=== PATIENT | female | born 1985 | race Caucasian/White ===

== ENCOUNTER 2024-03-15 02:11 | Emergency (ER) | payer MEDICAID, OTHER ==
[~2024-03-15] VITALS: Ht 165.1 cm; Wt 67.1 kg
[2024-03-15 02:16] VITALS: O2SAT 98
[2024-03-15 03:15] LABS: *BILIRUBIN,URIN NEGATIVE (NEGATIVE); *BLOOD, URINE NEGATIVE (NEGATIVE); *CLARITY,URINE SLIGHTLY CLOUDY (CLEAR); *COLOR,URINE Other (YELLOW); *KETONES,URINE NEGATIVE (NEGATIVE); *PROTEIN,URINE NEGATIVE (NEGATIVE); *UROBILINOGEN,URINE 0.2 E.U./dl (NORMAL); LEUKOCYTE ESTERASE ,URINE NEGATIVE (NEGATIVE); NITRITE, URINE NEGATIVE (NEGATIVE); PH,URINE 7.5 (5.0-8.0); UGLUCOSE NEGATIVE (NEGATIVE)
[2024-03-15 03:17] LABS: *URINE HCG, QUAL NEGATIVE (NEGATIVE)
[2024-03-15 03:26] LABS: RBC,URINE 0-3 /HPF (0-3)
[2024-03-15 03:27] LABS: BACTERIA,URINE MODERATE /HPF (NONE SEEN); SQUAMOUS EPITHELIAL CELL,UR MODERATE /HPF (NONE SEEN); WBC,URINE 0-3 /HPF (0-3); YEAST,URINE MANY /HPF (NONE SEEN)
[2024-03-15 03:28] LABS: MUCUS,URINE FEW /LPF (0-FEW)
[2024-03-15] MEDS ORDERED: SULF1TAB48 PO (03:46)
[2024-03-15] MEDS ORDERED: FLUC150T PO (03:49)
[2024-03-15] MEDS ORDERED: FLUCONAZOLE 100 MG TABLET ONE ×2 (03:50→03:55)
[2024-03-15] MEDS ORDERED: SULFAMETH/TRIMETH 800/160 MG TABLET ONE (03:51)
[2024-03-15] MEDS: FLUCONAZOLE 100 MG TABLET PO ONE (04:00)
[2024-03-15] MEDS: SULFAMETH/TRIMETH 800/160 MG TABLET PO ONE (04:00)
== END 2024-03-15 04:10 | disposition home or self-care (01) ==
LOC: ER 02:39
DX: N76.0 Acute vaginitis (principal); R30.0 Dysuria; R10.2 Pelvic and perineal pain; Z79.899 Other long term (current) drug therapy; Z88.0 Allergy status to penicillin
CPT/HCPCS: 84703; A4606; A4663